=== PATIENT | female | born 1965 | race Caucasian/White ===

== ENCOUNTER → 2017-01-21 | Outpatient (CLI) | payer BC ==
--- NOTE | 2017-01-24 14:33 | Diagnostic Imaging Report ---
Bilateral screening mammogram 2D views with tomosynthesis. The current study was also evaluated with a Computer Aided Detection (CAD) system. INDICATION: Screening. No current complaints stated on the questionnaire. COMPARISON: 10/18/2014. FINDINGS: The breasts are composed of heterogeneously dense parenchyma which would decrease mammographic sensitivity. Bilateral retropectoral symmetric implants are seen. Allowing for technique and positional differences, no suspicious change is seen. IMPRESSION: Dense breasts with no definite change. ACR BI-RADS Category 2: Benign findings. Result letter will be mailed to the patient. Note: At least 10% of breast cancer is not imaged by mammography. Dictated by: Dictated on workstation # [id number]
== END ==
LOC: RAD 13:18
PROVIDERS: ATTEND Family Medicine
DX: Z12.31 Encounter for screening mammogram for malignant neoplasm of breast (principal)
CPT/HCPCS: 77067

== ENCOUNTER → 2017-02-04 | Outpatient (CLI) | payer BC ==
[~2017-02-04] MED LIST: GADOBUTROL 7.5 MMOL/7.5 ML (GADAVIST) VIAL IV ONE
[2017-02-04 07:55] LABS: BLOOD UREA NITROGEN 16 MG/DL (7-18); BUN/CREATININE RATIO 19; CREATININE SERUM 0.85 MG/DL (0.60-1.30); GFR ESTIMATED > 60
--- NOTE | 2017-02-04 09:37 | Diagnostic Imaging Report ---
PROCEDURE: MR imaging of the brain with and without contrast. TECHNIQUE: Multiplanar/multisequence MR imaging of the brain was performed with and without contrast. INDICATION: Headache and dizziness. Ringing in the ears. CONTRAST: 5 mL of Gadovist was administered intravenously. FINDINGS: There is no diffusion restriction to suggest an acute infarct or other diffusion abnormality. The brain parenchyma demonstrates a CSF intensity 3 mm focus in the periventricular white matter, likely related to perivascular space, and similar smaller foci of probable perivascular spaces are noted in the basal ganglia. There is minimal periventricular and deep white matter T2 hyperintense tiny foci, likely related to early and mild manifestations of chronic microvascular ischemic changes. There is no brain edema, demyelinating lesion, or enhancing mass identified. No hydrocephalus. No extra-axial fluid collection or mass is seen. The pituitary gland is normal in size. No hypothalamic or pineal region mass. No hydrocephalus. No extra-axial fluid collection is seen. The central vascular flow-voids appear preserved. The internal auditory canals and inner ear structures appear unremarkable. The orbits appear symmetric. The anterior left ethmoidal air cells demonstrate mucosal thickening. IMPRESSION: No significant abnormality. Dictated by: Dictated on workstation # [id number]
== END ==
LOC: RAD 07:12
PROVIDERS: ATTEND Otolaryngology Otolaryngology/Facial Plastic Surgery
DX: R51 Headache (principal); R42 Dizziness and giddiness; R20.2 Paresthesia of skin
CPT/HCPCS: 36415; 70553; 82565; 84520

== ENCOUNTER → 2021-11-13 | Outpatient (CLI) | payer BC, OTHER ==
--- NOTE | 2021-11-13 15:26 | Diagnostic Imaging Report ---
3-D bilateral screening mammogram with CAD This study was compared to the prior exams of 01/21/2017. At this time there are no current complaints. There are bilateral breast implants in place. The implants appear similar to the prior study. There is no sign of an extracapsular rupture of either implant. The fibroglandular tissue overlying the implants is heterogeneously dense. This does limit the sensitivity of this exam. In the retroareolar region of the right breast at mid depth there is an 8 mm nodular asymmetry. I would recommend that a compression view of this area be obtained in the MLO and CC projections for further study as well as a true lateral view of the left breast for further evaluation. Ultrasound should also be performed. The right breast is unchanged. Impression: 1. Additional mammographic views and ultrasound of the left breast would be recommended for further study. 2. The bilateral breast implants seem stable. ACR BI-RADS Category 0: Incomplete. (Needs additional imaging evaluation). Result letter will be mailed to the patient. Note: At least 10% of breast cancer is not imaged by mammography. Dictated by: Dictated on workstation # [id number]
== END ==
LOC: RAD 08:46
PROVIDERS: ATTEND Family Medicine
DX: Z12.31 Encounter for screening mammogram for malignant neoplasm of breast (principal)
CPT/HCPCS: 77063; 77067

== ENCOUNTER → 2021-11-19 | Outpatient (CLI) | payer OTHER ==
--- NOTE | 2021-11-19 13:19 | Diagnostic Imaging Report ---
INDICATION: Left breast density. Patient presents for additional views. COMPARISON: Correlation is made with the recent screening study from 11/13/2021. TECHNIQUE: Unilateral left 2D and 3D diagnostic mammography was performed. This includes spot compression CC, ML, and MLO views. The current study was evaluated with a Computer Aided Detection (CAD) system. FINDINGS: There is a persistent circumscribed density at approximately the 12 o'clock location of the left breast 2-3 cm from the nipple. This has fairly benign features and may represent a cyst. Further evaluation with ultrasound is recommended. IMPRESSION: Persistent circumscribed density in the retroareolar 12 o'clock location of the left breast. Further evaluation with ultrasound is recommended and will be performed today. ACR BI-RADS Category 0: Incomplete. (Needs additional imaging evaluation). Result letter will be mailed to the patient. Note: At least 10% of breast cancer is not imaged by mammography. Dictated by: Dictated on workstation # [id number]
--- NOTE | 2021-11-19 15:37 | Diagnostic Imaging Report ---
INDICATION: Left breast density. COMPARISON: Correlation is made with the diagnostic mammogram from earlier this same day and the screening mammogram from 11/13/2021. FINDINGS: Sonographic interrogation at the 12 o'clock location of the left breast 2 to 3 cm from the nipple was performed. There is a circumscribed mass with internal debris. This shows posterior acoustic enhancement and is most consistent with a complex cyst. This does correspond to the mammographic density. No internal vascularity is seen. IMPRESSION: Features are suggestive of a complex cyst at the 12 o'clock location of the left breast 2 to 3 cm from the nipple, accounting for the mammographic density. A followup left breast ultrasound in 6 months is recommended to show continued stability. ACR BI-RADS Category 3: Probably benign findings. Result letter will be mailed to the patient. Note: At least 10% of breast cancer is not imaged by mammography. Dictated by: Dictated on workstation # [id number]
== END ==
LOC: RAD 12:45
PROVIDERS: ATTEND Nurse Practitioner Family
DX: N63.10 Unspecified lump in the right breast, unspecified quadrant (principal); R92.2 Inconclusive mammogram
CPT/HCPCS: 76642; 77065; G0279